=== PATIENT | female | born 2005 | race Caucasian/White ===

== ENCOUNTER 2025-07-27 12:08 | Outpatient (CLI) | payer OTHER, SELFPAY ==
[2025-07-27 13:57] LABS: Hepatitis B Surface Antigen Negative (Negative)
[2025-07-27 14:04] LABS: HAV RESULT Negative (Negative); Hepatitis B Core IgM Result Negative (Negative); Syphilis IgG/IgM Antibody Non-Reactive (Nonreactive)
[2025-07-27 14:05] LABS: HIV 1/2 Ab P24 Ag Result Negative (Negative)
[2025-07-28 05:08] LABS: HSV 1 IgG, Type Spec Non Reactive (Non Reactive); HSV 2 IgG, Type Spec Non Reactive (Non Reactive)
== END 2025-07-27 12:09 | disposition home or self-care (01) ==
PROVIDERS: Visit Provider Student in an Organized Health Care Education/Training Program
DX: Z20.2 Contact with and (suspected) exposure to infections with a predominantly sexual mode of transmission (principal)
CPT/HCPCS: 36415; 80074; 86593; 86695; 86696; 86703; G0432